=== PATIENT | female | born 1970 | race Caucasian/White ===

== ENCOUNTER 2019-07-29 07:26 | Day surgery (SDC) | payer OTHER ==
[2019-07-29] MEDS ORDERED: Ondansetron 4 MG/2 ML SDV IVPUSH ONE (07:27)
[2019-07-29] MEDS ORDERED: Dexamethasone 4 MG/ML 5 ML MDV IVPUSH ONE (07:27)
[2019-07-29] MEDS ORDERED: Glycopyrrolate 0.2 MG/ML 5 ML MDV IV ONE (07:27)
[2019-07-29] MEDS ORDERED: Ketorolac 30 MG/ML SDV IVPUSH ONE (07:27)
[2019-07-29] MEDS ORDERED: Midazolam 1 MG/ML 2 ML SDV IV ONE (07:27)
[2019-07-29] MEDS ORDERED: Propofol 200 MG/20 ML SDV IV ONE (07:27)
[2019-07-29] MEDS ORDERED: fentaNYL 100 MCG/2 ML SDV IV ONE (07:27)
[2019-07-29] MEDS ORDERED: diphenhydrAMINE 50 MG/ML SDV IVPUSH ONE (07:27)
[2019-07-29] MEDS ORDERED: Lidocaine 2% 5 ML SDV INJECT ONE (07:27)
[2019-07-29] MEDS ORDERED: Lactated Ringers 1,000 ML IV SCH (07:30)
[2019-07-29] MEDS ORDERED: Sodium Chloride 0.9% 10 ML Syringe FLUSH PRN (07:30)
[2019-07-29] MEDS ORDERED: ceFAZolin 1 GM in Sodium Chloride 0.9% 50 ML IV ONE (08:00)
[2019-07-29] MEDS ORDERED: ceFAZolin 1 GM Vial IVPUSH ONE (08:00)
[2019-07-29] MEDS ORDERED: Scopolamine 1.5 MG Transdermal Patch TRDERM ONE (08:26)
[2019-07-29] MEDS ORDERED: Lidocaine 1% with EPINEPHrine 1:100,000 20 ML MDV INJECT ONE (09:10)
[2019-07-29] MEDS ORDERED: Bupivacaine 0.5% 30 ML SDV INJECT ONE (09:10)
--- NOTE | 2019-07-29 09:35 | PCM.OPNOTE ---
- General Post-Op/Procedure Note Date of Surgery/Procedure: 07/29/19 Operative Procedure(s): Incisional hernia repair Findings: 5 cm x 1 cm defect Pre Op Diagnosis: incisional hernia without obstruction or gangrene Post-Op Diagnosis: Same Anesthesia Technique: Local (4 ml 1 % lido with epi/0.5% buvipicaine), MAC Primary Surgeon: Tyrese Kelly Anesthesia Provider: Doroteo Styles Pathology: none Complications: None Condition: Good Free Text/Narrative:: see dictation
[2019-07-29] MEDS ORDERED: Acetaminophen/HYDROcodone 325-5 MG Tab PO PRN (09:43)
--- NOTE | 2019-07-29 11:20 | OR ---
DATE OF OPERATION: 07/29/2019 SURGEON: Tyrese Kelly MD PROCEDURE PERFORMED: Incisional hernia repair. PREOPERATIVE DIAGNOSIS: Incisional hernia without obstruction or gangrene. POSTOPERATIVE DIAGNOSIS: Incisional hernia without obstruction or gangrene. 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 She has developed a small defect above the umbilicus and she was offered and accepted repair. INTRAOPERATIVE FINDINGS: A roughly 4 x 1 cm defect was encountered. This was repaired with a Ventrio ST hernia patch, reference number [id number], lot #[id number] with an expiration date of 10/18/2020, and this is 11 x 14 cm in size. 4 mL of 1:1 mixture of 1% lidocaine with epinephrine, 0.5% bupivacaine was used. DESCRIPTION OF OPERATION: After an excellent LMA anesthetic was administered, the patient was prepped and draped in the usual sterile manner. The previously marked hernia site was infiltrated with our local. An incision was made down through the previous incision and the abdominal defect was immediately identified. The abdominal cavity was entered, and after assuring that there were no adhesions and measuring the size of the defect, the appropriately sized mesh was inserted into the abdominal cavity and tacked to the anterior abdominal wall using Stat tackers circumferentially. This was done after ensuring a clear field between the mesh and the anterior abdominal wall. The fascial defect was then closed with a running 0 Prolene. The subsequent skin layers were closed. Subcu fat was reapproximated using a running 3-0 Vicryl and subcu 4-0 Vicryl was used to close the skin. Needle, sponge, and instrument counts were reported as correct. The patient was taken to recovery room in good condition. /[id number] /MODL
== END 2019-07-29 12:19 | disposition home or self-care (01) ==
LOC: FB.SDS 07:26
PROVIDERS: ATTEND Surgery
DX: K43.2 Incisional hernia without obstruction or gangrene (principal); F41.9 Anxiety disorder, unspecified; F32.9 Major depressive disorder, single episode, unspecified; J45.909 Unspecified asthma, uncomplicated; Z79.899 Other long term (current) drug therapy; Z88.6 Allergy status to analgesic agent; Z88.2 Allergy status to sulfonamides; Z88.1 Allergy status to other antibiotic agents; Z91.011 Allergy to milk products
CPT/HCPCS: 81025; 94150; A9270-GY; C1781; J0690; J1100; J1200; J1885; J2001; J2250; J2405; J2704; J3010; J3490; J7120

== ENCOUNTER 2022-03-04 20:30 | Emergency (ER) | payer OTHER | END 2022-03-04 22:27 | disposition home or self-care (01) | LOC: FB.ED 20:30 | DX: S40.011A Contusion of right shoulder, initial encounter (principal); J45.909 Unspecified asthma, uncomplicated; K21.9 Gastro-esophageal reflux disease without esophagitis; Z79.899 Other long term (current) drug therapy; Z88.1 Allergy status to other antibiotic agents; Z88.2 Allergy status to sulfonamides; Z88.6 Allergy status to analgesic agent; Z91.011 Allergy to milk products; X58.XXXA Exposure to other specified factors, initial encounter | CPT/HCPCS: 36415; 85025; 99281; 99283 ==